=== PATIENT | female | born 1985 ===

== ENCOUNTER → 2017-01-21 | Outpatient (CLI) | payer BC, OTHER ==
[2017-01-22 13:22] LABS: CHLAMYDIA TRACH RNA*** NOT DETECTED (NOT DETECTED); GC (NEIS GONORRHOEAE)RNA** NOT DETECTED (NOT DETECTED)
== END | disposition home or self-care (01) ==
LOC: C.LABMFLN 07:45
PROVIDERS: ATTEND Family Medicine
DX: N72 Inflammatory disease of cervix uteri (principal)

== ENCOUNTER → 2017-01-21 | Outpatient (CLI) | payer OTHER | END | disposition home or self-care (01) | LOC: C.PAPS 09:27 | PROVIDERS: ATTEND Family Medicine | DX: N72 Inflammatory disease of cervix uteri (principal) ==